=== PATIENT | male | born 1950 | race Caucasian/White ===

== ENCOUNTER 2022-12-31 07:42 | Day surgery (SDC) | payer MEDICARE ==
[~2022-12-31 07:42] MED LIST: ATOR80 PO; METO50ER PO; Prinivil10 MG PO; WARF7.5
[2022-12-31 08:05] VITALS: BP 130/81
== END 2022-12-31 22:38 | disposition home or self-care (01) ==
LOC: ATC 07:42
DX: I11.0 Hypertensive heart disease with heart failure (principal); I50.30 Unspecified diastolic (congestive) heart failure; Z95.2 Presence of prosthetic heart valve; E78.2 Mixed hyperlipidemia; Z88.2 Allergy status to sulfonamides; Z88.0 Allergy status to penicillin; Z79.01 Long term (current) use of anticoagulants; Z79.899 Other long term (current) drug therapy
CPT/HCPCS: 96372; J1650

== ENCOUNTER 2023-01-01 01:59 | Day surgery (SDC) | payer MEDICARE ==
[2023-01-01 07:40] VITALS: BP 126/77
== END 2023-01-01 15:51 | disposition home or self-care (01) ==
LOC: ATC 01:59
DX: I11.0 Hypertensive heart disease with heart failure (principal); I50.30 Unspecified diastolic (congestive) heart failure; Z95.2 Presence of prosthetic heart valve; Z79.01 Long term (current) use of anticoagulants; E78.2 Mixed hyperlipidemia; Z88.0 Allergy status to penicillin; Z88.2 Allergy status to sulfonamides; Z91.041 Radiographic dye allergy status
CPT/HCPCS: 96372; J1650

== ENCOUNTER 2023-01-02 01:34 | Day surgery (SDC) | payer MEDICARE ==
[2023-01-02 07:33] VITALS: BP 136/73
== END 2023-01-02 07:36 | disposition home or self-care (01) ==
LOC: ATC 01:34
DX: I11.0 Hypertensive heart disease with heart failure (principal); I50.30 Unspecified diastolic (congestive) heart failure; Z95.2 Presence of prosthetic heart valve; Z79.01 Long term (current) use of anticoagulants; E78.2 Mixed hyperlipidemia; Z88.0 Allergy status to penicillin; Z88.2 Allergy status to sulfonamides; Z91.041 Radiographic dye allergy status
CPT/HCPCS: 96372; J1650

== ENCOUNTER 2023-01-03 04:56 | Day surgery (SDC) | payer MEDICARE ==
[2023-01-03 15:20] VITALS: BP 102/64
== END 2023-01-03 15:20 | disposition home or self-care (01) ==
LOC: ATC 04:56
DX: I12.9 Hypertensive chronic kidney disease with stage 1 through stage 4 chronic kidney disease, or unspecified chronic kidney disease (principal); Z95.2 Presence of prosthetic heart valve; Z79.01 Long term (current) use of anticoagulants; E78.2 Mixed hyperlipidemia; N18.30 Chronic kidney disease, stage 3 unspecified
CPT/HCPCS: 96372; J1650

== ENCOUNTER 2023-01-03 07:08 | Day surgery (SDC) | payer MEDICARE ==
[~2023-01-03] VITALS: Ht 182.9 cm; Wt 116.0 kg
--- NOTE | 2023-01-03 08:31 | NUR ---
01/03/23 0830 BRIAN CHRISTIE PT BRIDGED WARFARIN DIRECTED BY PCP/PASSPORT APPLICATION EXAMINER/ DIGITAL MARKETING MANAGER LAST DOSE WARFARIN 12/29/22- LOVENOX 24HRS PRIOR TO PROCEDURE- PER PT.
[2023-01-03 09:37] VITALS: BP 148/85
== END 2023-01-03 09:40 | disposition home or self-care (01) ==
LOC: ORSCSDS 07:08
PROVIDERS: Internal Medicine Gastroenterology
PROC: 0DBK8ZX Excision of Ascending Colon, Via Natural or Artificial Opening Endoscopic, Diagnostic (ICD-10-PCS; principal; 2023-01-03 08:45)
PROC: 0DBL8ZX Excision of Transverse Colon, Via Natural or Artificial Opening Endoscopic, Diagnostic (ICD-10-PCS; principal; 2023-01-03 08:45)
DX: Z12.11 Encounter for screening for malignant neoplasm of colon (principal); Z86.010 Personal history of colon polyps; D12.3 Benign neoplasm of transverse colon; D12.2 Benign neoplasm of ascending colon; K57.30 Diverticulosis of large intestine without perforation or abscess without bleeding; K64.8 Other hemorrhoids; Z79.899 Other long term (current) drug therapy; I10 Essential (primary) hypertension; Z96.653 Presence of artificial knee joint, bilateral; Z95.2 Presence of prosthetic heart valve; Z79.01 Long term (current) use of anticoagulants; I12.9 Hypertensive chronic kidney disease with stage 1 through stage 4 chronic kidney disease, or unspecified chronic kidney disease; E78.2 Mixed hyperlipidemia; N18.30 Chronic kidney disease, stage 3 unspecified
CPT/HCPCS: 88305; 96372; J1650; J2704; J7120

== ENCOUNTER 2023-01-04 03:45 | Day surgery (SDC) | payer MEDICARE ==
[2023-01-04 07:40] VITALS: BP 130/80
[2023-01-04 15:35] VITALS: BP 133/78
== END 2023-01-04 15:38 | disposition home or self-care (01) ==
LOC: ATC 03:45
DX: I12.9 Hypertensive chronic kidney disease with stage 1 through stage 4 chronic kidney disease, or unspecified chronic kidney disease (principal); N18.30 Chronic kidney disease, stage 3 unspecified; E78.2 Mixed hyperlipidemia; Z95.2 Presence of prosthetic heart valve; Z88.0 Allergy status to penicillin; Z88.2 Allergy status to sulfonamides; Z79.01 Long term (current) use of anticoagulants; Z79.899 Other long term (current) drug therapy
CPT/HCPCS: 36416; 85610; 96372; J1650

== ENCOUNTER 2023-01-05 02:20 | Day surgery (SDC) | payer MEDICARE ==
[2023-01-05 07:41] VITALS: BP 148/87
[2023-01-05 15:41] VITALS: BP 128/69
== END 2023-01-05 15:43 | disposition home or self-care (01) ==
LOC: ATC 02:20
DX: I12.9 Hypertensive chronic kidney disease with stage 1 through stage 4 chronic kidney disease, or unspecified chronic kidney disease (principal); Z95.2 Presence of prosthetic heart valve; Z79.01 Long term (current) use of anticoagulants; N18.30 Chronic kidney disease, stage 3 unspecified; E78.2 Mixed hyperlipidemia
CPT/HCPCS: 36416; 85610; 96372; J1650

== ENCOUNTER 2023-01-06 00:14 | Day surgery (SDC) | payer MEDICARE ==
[2023-01-06 07:51] VITALS: BP 129/65
== END 2023-01-06 15:30 | disposition home or self-care (01) ==
LOC: ATC 00:14
DX: Z95.2 Presence of prosthetic heart valve (principal); I11.0 Hypertensive heart disease with heart failure; I50.30 Unspecified diastolic (congestive) heart failure; E78.2 Mixed hyperlipidemia; Z79.01 Long term (current) use of anticoagulants; Z88.0 Allergy status to penicillin; Z88.2 Allergy status to sulfonamides; Z79.899 Other long term (current) drug therapy
CPT/HCPCS: 36416; 85610; 96372; J1650

== ENCOUNTER 2023-01-07 03:44 | Day surgery (SDC) | payer MEDICARE ==
[2023-01-07 07:34] VITALS: BP 134/62
[2023-01-07 15:18] VITALS: BP 128/69
== END 2023-01-07 15:19 | disposition home or self-care (01) ==
LOC: ATC 03:44
DX: Z95.2 Presence of prosthetic heart valve (principal); I10 Essential (primary) hypertension; E78.2 Mixed hyperlipidemia; Z88.0 Allergy status to penicillin; Z88.2 Allergy status to sulfonamides; Z79.01 Long term (current) use of anticoagulants; Z79.899 Other long term (current) drug therapy
CPT/HCPCS: 36416; 85610; 96372; J1650

== ENCOUNTER 2023-01-08 00:37 | Day surgery (SDC) | payer MEDICARE ==
[2023-01-08 07:40] VITALS: BP 133/65
--- NOTE | 2023-01-08 08:04 | NUR ---
PT'S INR IS NOW >2.3. NO FURTHER LOVENOX DOSING IS REQUIRED.
== END 2023-01-08 07:50 | disposition home or self-care (01) ==
LOC: ATC 00:37
DX: I10 Essential (primary) hypertension (principal); E78.2 Mixed hyperlipidemia; Z95.2 Presence of prosthetic heart valve; Z79.01 Long term (current) use of anticoagulants; Z88.0 Allergy status to penicillin; Z88.2 Allergy status to sulfonamides
CPT/HCPCS: 36416; 85610; 99211

== ENCOUNTER 2024-02-12 08:30 | Inpatient (IN) | payer MEDICARE ==
[~2024-02-12] VITALS: Ht 182.9 cm; Wt 117.2 kg
[2024-02-12 09:15] LABS: BASOPHILS ABSOLUTE AUTO 0.03 K/mm3 (0.00-0.23); BASOPHILS PERCENT AUTO 0 % (0-2); EOSINOPHILS ABSOLUTE AUTO 0.03 K/mm3 (0.00-0.68); EOSINOPHILS PERCENT AUTO 0 % (0-6); Hematocrit 42.7 % (37.0-53.0); Hemoglobin 14.6 g/dL (13.5-17.5); IMMATURE GRAN ABSOLUTE AUTO 0.08 K/mm3 (0.00-0.10); IMMATURE GRAN PERCENT AUTO 1 % (0-1); LYMPHOCYTES ABSOLUTE AUTO 1.17 K/mm3 (0.84-5.20); LYMPHOCYTES PERCENT AUTO 8 % (21-46); MONOCYTES ABSOLUTE AUTO 1.22 K/mm3 (0.16-1.47); MONOCYTES PERCENT AUTO 8 % (4-13); Mean Corpuscular HGB 30.8 pg (26.0-34.0); Mean Corpuscular HGB Conc 34.2 g/dL (31.5-36.5); Mean Corpuscular Volume 90 fL (80-100); NEUTROPHILS ABSOLUTE AUTO 12.98 K/mm3 (1.96-9.15); NEUTROPHILS PERCENT AUTO 84 % (41-73); Platelet Count 159 K/mm3 (150-400); RDW Coefficient Variation 13.6 % (11.7-14.2); RDW Standard Deviation 45.2 fL (35.1-46.3); Red Blood Cell Count 4.74 M/mm3 (4.30-5.90); White Blood Cell Count 15.51 K/mm3 (4.00-11.30)
[2024-02-12] MEDS ORDERED: Ondansetron HCl 2 MG / ML 2ML Vial IV ONE (09:15)
[2024-02-12] MEDS ORDERED: NS 1,000 ML IV SCH (09:15)
[2024-02-12] MEDS ORDERED: Acetaminophen 500 MG Tab PO ONE (09:15)
[2024-02-12 09:18] LABS: Source, Urine Clean Catch
[2024-02-12 09:29] LABS: Appearance, Urine Clear (Clear); Bilirubin, Urine Neg (Neg); Blood, Urine 2+ (Neg); Color, Urine Amber (P-Yellow); Glucose Qualitative, Urine Neg (Neg); Ketones, Urine Neg (Neg); Leukocyte Esterase, Urine Neg (Neg); Nitrite, Urine Neg (Neg); Protein, Urine 2+ (Neg); Urobilinogen, Urine 1+ (Normal)
[2024-02-12 09:29] LABS: International Normalized Ratio 3.89; Prothrombin Time Results 37.6 Sec (9.7-11.5)
[2024-02-12 09:37] LABS: Albumin, Blood 3.7 g/dL (3.4-5.0); Albumin/Globulin Ratio 1.2 (0.8-1.8); Bilirubin, Total 2.3 mg/dL (0.1-1.0); Bun/Creatinine Ratio 17.2 (12.0-20.0); Calcium, Blood 9.4 mg/dL (8.5-10.1); Creatinine, Blood 1.34 mg/dL (0.60-1.20); Globulin, Blood 3.1 g/dL (2.2-4.0); Potassium, Blood 4.8 mmol/L (3.5-5.5); Total Protein, Blood 6.8 g/dL (6.4-8.2)
[2024-02-12] MEDS ORDERED: DiphenhydrAMINE HCl 50 MG/ML 1ML Vial IV ONE (09:40)
[2024-02-12 09:45] LABS: White Blood Cells, Urine 0-2 /hpf (0-5)
[2024-02-12 09:46] LABS: Bacteria Rare /hpf; Hyaline Casts 0-2 /lpf (0-2); Squamous Epithelial Cells Few /hpf (Few)
[2024-02-12] MEDS ORDERED: CefTRIAXone Sodium 1,000 MG in NS 50 ML IV ONE (10:10)
[2024-02-12] MEDS ORDERED: FLU VACC TS2024-25(6MOS UP)/PF 45 MCG/0.5 ML SYRINGE IM SCH (15:15)
[2024-02-12] MEDS ORDERED: Acetaminophen 325 MG TABLET PO PRN (15:15)
[2024-02-12] MEDS ORDERED: FentaNYL Citrate 50 MCG/ML 2 ML Injection IV PRN (15:15)
[2024-02-12] MEDS ORDERED: Ondansetron HCl 2 MG / ML 2ML Vial IV PRN (15:20)
[2024-02-12 16:42] VITALS: BP 155/79
--- NOTE | 2024-02-12 18:37 | NUR ---
PT ARRIVED TO ROOM AOX4 AND COOPERATIVE OF CARE. NO DISTRESS NOTED AND INDEPENDENT IN ROOM. PT ABLE TO MAKE NEEDS KNOWN CALL LIGHT IS WITHIN REACH.
--- NOTE | 2024-02-12 18:38 | NUR ---
THIS NSH TEACHER HAS REVIEWED AND AGREES WITH ALL NOTES AND ASSESSMENTS BY BALJEET ZAHNG.
[2024-02-12 19:11] VITALS: BP 141/72
[2024-02-12] MEDS ORDERED: Lactobacil 2-S.Thermo-Bifido 1 1 Cap PO SCH (21:00)
[2024-02-13 04:52] VITALS: BP 119/70
[2024-02-13 05:42] LABS: BASOPHILS ABSOLUTE AUTO 0.02 K/mm3 (0.00-0.23); BASOPHILS PERCENT AUTO 0 % (0-2); EOSINOPHILS ABSOLUTE AUTO 0.04 K/mm3 (0.00-0.68); EOSINOPHILS PERCENT AUTO 0 % (0-6); Hematocrit 39.6 % (37.0-53.0); Hemoglobin 13.2 g/dL (13.5-17.5); IMMATURE GRAN ABSOLUTE AUTO 0.08 K/mm3 (0.00-0.10); IMMATURE GRAN PERCENT AUTO 1 % (0-1); LYMPHOCYTES ABSOLUTE AUTO 1.04 K/mm3 (0.84-5.20); LYMPHOCYTES PERCENT AUTO 8 % (21-46); MONOCYTES ABSOLUTE AUTO 1.13 K/mm3 (0.16-1.47); MONOCYTES PERCENT AUTO 8 % (4-13); Mean Corpuscular HGB 30.7 pg (26.0-34.0); Mean Corpuscular HGB Conc 33.3 g/dL (31.5-36.5); Mean Corpuscular Volume 92 fL (80-100); Mean Platelet Volume 10.8 fL (9.1-12.4); NEUTROPHILS ABSOLUTE AUTO 11.31 K/mm3 (1.96-9.15); NEUTROPHILS PERCENT AUTO 83 % (41-73); Platelet Count 132 K/mm3 (150-400); RDW Coefficient Variation 13.8 % (11.7-14.2); RDW Standard Deviation 47.3 fL (35.1-46.3); White Blood Cell Count 13.62 K/mm3 (4.00-11.30)
[2024-02-13 05:54] LABS: International Normalized Ratio 3.26
--- NOTE | 2024-02-13 06:02 | NUR ---
SHIFT SUMMARY PT IS A&OX4, PLEASANT AND APPRECIATIVE OF CARES. HE IS [place], AND WEARS BILATERAL HEARING AIDES. HEARING AIDES ARE AT BEDSIDE. C/O PAIN IN RLQ, DID NOT MEDICATE FOR THIS. TOOK TYLENOL FOR ELEVATED TEMP. VSS ON RA. TOLERATING A CLEAR LIQUID DIET, NO C/O NAUSEA. UP AD AMOL INDEPENDENTLY IN ROOM/BR. VOIDING IN TOILET, NO BM THIS SHIFT. BED IN LOWEST POSITION, CALL LIGHT WITHIN REACH.
[2024-02-13 06:09] LABS: Albumin, Blood 2.8 g/dL (3.4-5.0); Albumin/Globulin Ratio 0.9 (0.8-1.8); Bilirubin, Total 1.4 mg/dL (0.1-1.0); Bun/Creatinine Ratio 15.3 (12.0-20.0); Calcium, Blood 8.8 mg/dL (8.5-10.1); Creatinine, Blood 1.18 mg/dL (0.60-1.20); Potassium, Blood 4.5 mmol/L (3.5-5.5); Total Protein, Blood 5.8 g/dL (6.4-8.2)
[2024-02-13 07:20] VITALS: BP 136/68
[2024-02-13] MEDS ORDERED: NS 250 ML IV PRN (07:30)
[2024-02-13] MEDS ORDERED: Metoprolol Succinate 50 MG TABCR PO SCH (09:00)
[2024-02-13] MEDS ORDERED: Lisinopril 10 MG Tab PO SCH (09:00)
[2024-02-13] MEDS ORDERED: Atorvastatin 40 MG Tab PO SCH (09:00)
[2024-02-13] MEDS ORDERED: CefTRIAXone Sodium 1,000 MG in NS 100 ML IV SCH (09:00)
--- NOTE | 2024-02-13 11:56 | NUR ---
RN NOTE MR IVORY HAS MINIMAL RLQ DISCOMFORT THIS AM, NOT REQUIRING ANY PAIN MEDICATIONS. NO NAUSEA. UP INDEPENDENTLY TO THE BATHROOM WITH STEADY GAIT. COBRA TRANSFER PENDING TO [facility]. REPORT CALLED TO JACQUELYN ELMORE AT 1152HRS.
[2024-02-13 12:16] VITALS: BP 136/68
[2024-02-13 12:37] VITALS: BP 136/68
--- NOTE | 2024-02-13 13:21 | NUR ---
transfer ems transfer to [facility] at 1320hrs. Given facility address. No new complaints or concerns prior to transfer. PIV left in place to L a/c.
== END 2024-02-13 13:15 | disposition short-term general hospital (02) | DRG 872 ==
LOC: ER 08:30 → MEDS 15:13
PROVIDERS: Student in an Organized Health Care Education/Training Program; ADMIT Family Medicine
DX: A41.9 Sepsis, unspecified organism (principal); K80.42 Calculus of bile duct with acute cholecystitis without obstruction; N18.30 Chronic kidney disease, stage 3 unspecified; E78.5 Hyperlipidemia, unspecified; I12.9 Hypertensive chronic kidney disease with stage 1 through stage 4 chronic kidney disease, or unspecified chronic kidney disease; Z95.2 Presence of prosthetic heart valve; Z88.2 Allergy status to sulfonamides; Z88.0 Allergy status to penicillin; Z79.899 Other long term (current) drug therapy; Z79.01 Long term (current) use of anticoagulants; Z87.19 Personal history of other diseases of the digestive system; Z98.890 Other specified postprocedural states
CPT/HCPCS: 36415; 74177; 76705; 80053; 81001; 83605; 83690; 83735; 85025; 85610; 87040; 94762; 96361; 96365-59; 96375; 99285-25; A9270; J0696; J1200; J2405; J7030; J7050; Q9967

== ENCOUNTER 2025-02-27 12:21 | Day surgery (SDC) | payer MEDICARE ==
[~2025-02-27] VITALS: Ht 152.4 cm; Wt 119.8 kg
[~2025-02-27 12:21] MED LIST changes: +Bupivacaine 0.5% W/EPI 1:200000 SDV 30 ML Vial ONE; +Cleocin HCl150 MG PO; +HYDR1TAB94 PO; +Lidocaine HCl 2% 10 ML SDA ONE
[2025-02-27] MEDS ORDERED: CeFAZolin Sodium 2,000 MG VIAL ONE (13:02)
[2025-02-27] MEDS ORDERED: FentaNYL Citrate 50 MCG/ML 2 ML Injection ONE (14:37)
[2025-02-27] MEDS ORDERED: Ondansetron HCl 2 MG / ML 2ML Vial ONE (14:37)
[2025-02-27] MEDS ORDERED: Dexamethasone Sod Phos 10 MG/ML 1ML VIAL ONE (14:37)
[2025-02-27 15:35] VITALS: BP 139/71
--- NOTE | 2025-02-27 16:26 | NUR ---
02/27/25 1626 Hannah Ortiz NO C/O PAIN. PT STATED THAT HE WAS HUNGRY. PT TOLERATED SNACK AND FLUIDS WELL. HIS FRIEND, LANCE, AT THE SIDE THE RECLINER. PT EDUCATION PROVIDED AND ALL QUESTIONS WERE ANSWERED AND CONCERNS ADDRESSED. PT STATED THAT PER DR. PAL, PT IS ABLE TO BEAR WEIGHT ONLY WITH A POST-OP SHOE AND WIGGLE HIS TOES WHILE HE IS WALKING. THIS RN TEXTED DR. PAL, TO ASK IF THAT INFORMATION IS CORRECT. STILL WAITING TO HEAR BACK FROM DR. PAL.
== END 2025-02-27 16:06 | disposition home or self-care (01) ==
LOC: ORSCSDS 12:21
PROVIDERS: Podiatrist Foot & Ankle Surgery
PROC: 0JBQ0ZZ Excision of Right Foot Subcutaneous Tissue and Fascia, Open Approach (ICD-10-PCS; principal; 2025-02-27 13:55)
PROC: 0QBN0ZZ Excision of Right Metatarsal, Open Approach (ICD-10-PCS; principal; 2025-02-27 13:55)
PROC: 0QSN04Z Reposition Right Metatarsal with Internal Fixation Device, Open Approach (ICD-10-PCS; principal; 2025-02-27 13:55)
PROC: 0QBQ0ZZ Excision of Right Toe Phalanx, Open Approach (ICD-10-PCS; principal; 2025-02-27 13:55)
DX: D17.23 Benign lipomatous neoplasm of skin and subcutaneous tissue of right leg (principal); M20.5X1 Other deformities of toe(s) (acquired), right foot; I10 Essential (primary) hypertension; I50.9 Heart failure, unspecified; Z79.01 Long term (current) use of anticoagulants; Z79.899 Other long term (current) drug therapy
CPT/HCPCS: 88304; A6253; J0690; J1100; J2003; J2405; J2704; J3010; J7120